=== PATIENT | male | born 1995 | race Caucasian/White ===

== ENCOUNTER 2020-11-23 06:40 | Emergency (ER) | payer BC, MEDICAID ==
[~2020-11-23] VITALS: Ht 177.8 cm; Wt 82.6 kg
[2020-11-23 07:25] LABS: Basophils # (auto) 0 10 ^3/uL (0-0.2); Basophils % (auto) 0.5 % (0.0-2.0); Eosinophils # (auto) 0.2 10 ^3/uL (0-0.8); Eosinophils % (auto) 2.9 % (0.0-7.0); Hematocrit 45.3 % (41.0-53.0); Hemoglobin 16.1 g/dL (13.5-17.5); Lymphocytes # (auto) 1.8 10 ^3/uL (0.4-5.4); Mean Corpuscular Hemoglobin 30.6 pg (28.0-32.0); Mean Corpuscular Hgb Conc. 35.4 g/dL (32.0-36.0); Mean Corpuscular Volume 86.5 fL (80.0-100.0); Monocytes # (auto) 0.5 10 ^3/uL (0-1.3); Monocytes % (auto) 9.7 % (0.0-12.0); Neutrophils % (auto) 53.9 % (37.0-80.0); Nucleated Red Blood Cells % 0.1 %; Platelet Count (auto) 260 10^3/uL (140-450); Red Blood Cells 5.24 10^6/uL (4.5-5.90); Red Cell Distribution Width 12.2 % (11.8-14.3); White Blood Cell 5.5 10^3/uL (4.4-10.8)
[2020-11-23 07:30] VITALS: BP 134/87
[2020-11-23 07:40] LABS: Albumin 3.8 g/dL (3.4-5.0); Calcium 8.3 mg/dL (8.5-10.1); Potassium 4.1 mmol/L (3.5-5.1)
[2020-11-23 07:46] LABS: BUN/Creatinine Ratio 17.5; Bilirubin, Total 0.3 mg/dL (0.2-1.0); Total Protein 7.4 g/dL (6.4-8.2)
[2020-11-23] MEDS ORDERED: ACETAMINOPHEN 325 MG TAB PO ONE (11:15)
== END 2020-11-23 11:18 | disposition home or self-care (01) ==
LOC: ER 06:40 → EDBD 06:40 → ER 11:18
DX: S00.01XA Abrasion of scalp, initial encounter (principal); R55 Syncope and collapse; X58.XXXA Exposure to other specified factors, initial encounter; Y93.89 Activity, other specified; Y92.89 Other specified places as the place of occurrence of the external cause; Y99.8 Other external cause status
CPT/HCPCS: 36415; 70450; 80053; 82962; 85025

== ENCOUNTER 2022-02-17 07:56 | Day surgery (SDC) | payer BC ==
[~2022-02-17] VITALS: Ht 177.8 cm; Wt 83.5 kg
[~2022-02-17 07:56] MED LIST: NORT25CA PO
[2022-02-17] MEDS ORDERED: ceFAZolin 1GM/50ML 100 ML IV ONE (08:14)
[2022-02-17] MEDS ORDERED: BUPIVACAINE W/ EPINEPH 0.25% INJ 50ML MDV ONE (10:42)
[2022-02-17] MEDS ORDERED: ROCURONIUM 10MG/ML 10ML VIAL IV ONE (11:05)
[2022-02-17] MEDS ORDERED: MIDAZOLAM HCL 2MG/2ML 2ml VIAL (1mg/ml) ONE (11:05)
[2022-02-17] MEDS ORDERED: fentaNYL CITRATE 100 MCG/2 ML VL ONE (11:05)
[2022-02-17] MEDS ORDERED: LIDOCAINE 2% (LOCAL ANESTH.) PF 5ml SDV ONE (11:53)
[2022-02-17] MEDS ORDERED: ONDANSETRON HCL 4 MG/2 ML VIAL ONE (11:53)
[2022-02-17] MEDS ORDERED: PROPOFOL 10 MG/ML 20 ML IV ONE (11:54)
[2022-02-17] MEDS ORDERED: HYDROmorphone HCL 2 MG/ML VL/or syr IV PRN (12:00)
[2022-02-17] MEDS ORDERED: ONDANSETRON HCL 4 MG/2 ML VIAL IV PRN (12:00)
[2022-02-17] MEDS: HYDROmorphone HCL 2 MG/ML VL/or syr IV PRN ×4 (12:22→13:03)
[2022-02-17 13:25] VITALS: BP 127/73
== END 2022-02-17 13:38 | disposition home or self-care (01) ==
LOC: SUR 07:56
PROVIDERS: ATTEND Orthopaedic Surgery
DX: S92.351K Displaced fracture of fifth metatarsal bone, right foot, subsequent encounter for fracture with nonunion (principal); Z90.89 Acquired absence of other organs; Z98.890 Other specified postprocedural states; Z79.899 Other long term (current) drug therapy; Z20.822 Contact with and (suspected) exposure to COVID-19; X58.XXXD Exposure to other specified factors, subsequent encounter
CPT/HCPCS: 28485; 73620; J0690; J1170; J2001; J2250; J2405; J2704; J3010; U0003; 76000

== ENCOUNTER 2025-06-02 12:42 | Inpatient (IN) | payer BC, OTHER ==
[~2025-06-02] VITALS: Ht 177.8 cm; Wt 96.3 kg
[2025-06-02] MEDS: SODIUM CHLORIDE 0.9% 1,000 ML IV ONE ×2 (13:03→18:44)
[2025-06-02] MEDS: MORPHINE SULFATE 4 MG/ML SYR/VIAL IV ONE (13:22)
[2025-06-02] MEDS: ONDANSETRON HCL 4 MG/2 ML VIAL IV ONE ×2 (13:22→18:45)
[2025-06-02 13:34] LABS: Hematocrit 47.7 % (41.0-53.0); Hemoglobin 16.9 g/dL (13.5-17.5); Mean Corpuscular Hemoglobin 30.2 pg (28.0-32.0); Mean Corpuscular Volume 85.4 fL (80.0-100.0); Nucleated Red Blood Cells % 0.3 %
[2025-06-02 13:39] LABS: Alkaline Phosphatase 83 U/L (46-116); Anion Gap 10 (5-15); BUN/Creatinine Ratio 8.3 (10.0-20.0); Calcium 9.5 mg/dL (8.7-10.4); Carbon Dioxide 22 mmol/L (20-31); Chloride 106 mmol/L (98-107); Glucose 105 mg/dL (74-106); Potassium 4.3 mmol/L (3.5-5.1); Sodium 138 mmol/L (136-145); Total Protein 7.3 g/dL (5.7-8.2)
[2025-06-02 13:40] LABS: Bilirubin, Total 0.8 mg/dL (0.2-1.0)
[2025-06-02 13:42] LABS: Alanine Aminotransferase 105 U/L (7-40); Albumin 4.9 g/dL (3.2-4.8); Blood Urea Nitrogen 9 mg/dL (9-23)
--- NOTE | 2025-06-02 13:48 | DVH ---
CLINICAL HISTORY: R flank pain TECHNIQUE: CT of the abdomen and pelvis was performed without IV contrast. This exam was performed ac cording to our departmental dose optimization program. Up-to-date CT equipment and radiation dose red uction techniques are utilized as appropriate. CTDI 19.5 DLP 1060.4 COMPARISON: None FINDINGS: Abdomen/Pelvis: The spleen, pancreas, gallbladder, adrenal glands, left kidney, and prostate gland are grossly unrema rkable. There is diffuse hepatic steatosis. There is a 2 mm right UVJ calculus resulting in mild upstream hydronephrosis and perinephric left per iureteral flammatory change. There is a 1 mm nonobstructing right renal calculus. The abdominal aorta is normal in course and caliber. There are no significant atherosclerotic calcifi cations. There is no free intraperitoneal air or fluid. There is no enlarged abdominal pelvic lymph node. There is no bowel wall thickening or dilatation. The appendix is normal. Other: The imaged lower thorax demonstrates miniscule bilateral pleural fusion. No acute osseous abnormality is evident. Impression: 2 mm right UVJ calculus result in mild upstream hydroureteronephrosis. Punctate nonobstructing right renal calculus. Diffuse hepatic steatosis. Miniscule bilateral pleural effusions.
--- NOTE | 2025-06-02 14:21 | ED.PDOC ---
History of Present Illness HPI Comments 29 y/o M with no significant past medical history brought in by private car complaining of severe right flank pain radiating to the right lower quadrant, onset 2 days ago. Patient reports he had mild right flank pain yesterday, was diagnosed with a UTI at urgent Care, and was prescribed doxycycline and Pyri dium. He states today at work he developed severe right flank pain and noticed blood clots in his urine. He had 1 episode of nausea and vomiting, and also reports dysuria and urinary frequency. He denies fever or diarrhea. Chief Complaint: Flank Pain Time Seen by MD: 12:45 Primary Care Provider: Luis Eduardo Reviewed Notes: Nurses Notes, Medications, Allergies Allergies: Coded Allergies: NO KNOWN ALLERGIES (Unverified , 09/03/11) Home Meds Reported Medications Nortriptyline Hcl (PAMELOR CAPSULE) 25 Mg Cp, 10 MG PO QPM, CAP 02/11/22 Information Source: Patient Mode of Arrival: Ambulatory Past Medical History PAST MEDICAL HISTORY: Denies Surgical History: Tonsillectomy Surgical History (Other): Nasal septoplasty Right hand and foot ORIF Family History Family History: Reviewed,noncontributory to illness Social History Smoker: Non-Smoker Alcohol: Denies ETOH Use Drugs: Denies Drug Use Lives In: Home All Other Systems: Reviewed and Negative (Comprehensive systems review obtained and negative except for what is stated in the HPI.) Physical Exam General Appearance: No Apparent Distress HEENT: Other (Pupils and face symmetric. Moist mucous membranes.) Neck: Full Range of Motion, Normal Inspection Respiratory: Lungs Clear, No Accessory Muscle Use, No Respiratory Distress, Normal Breath Sounds Cardiovascular: No Edema, No JVD, Regular Rate/Rhythm Breast Exam: Deferred Gastrointestinal: Soft, Tenderness (Right-sided flank and right mid abdominal tenderness to palpation. No rebound or guarding.) Genitalia: Deferred Pelvic: Deferred Rectal: Deferred Extremities: Normal inspection, Normal range of motion, Non-tender, No pedal edema Neurologic: Alert (Oriented x4), Normal Affect, Normal Mood, Other (Ambulatory) Cerebellar Function: NOT DONE Reflexes: NOT DONE Skin: Dry, Normal Color, Warm Lymphatic: NOT DONE Was a procedure done? Was a procedure done?: No Differential Dx Considerations may include: nephrolithiasis, pyelonephritis, cystitis, UTI, appendicitis, biliary tract disease, colitis, diverticular disease, among others X-Ray, Labs, Meds, VS Vital Signs Date Time Temp Pulse Resp B/P (MAP) Pulse Ox O2 Delivery O2 Flow Rate FiO2 06/02/25 13:51 98.6 71 16 143/84 (103) 95 98.6 06/02/25 13:51 71 16 95 Room Air 06/02/25 13:50 71 16 143/84 06/02/25 13:22 89 18 163/105 06/02/25 12:43 98.0 89 18 163/105 98 98.0 Lab Test 06/02/25 15:08 06/02/25 13:02 Range/Units Urine Color Dark-orange Yellow Urine Clarity Clear Clear Urine pH 5.0 5.0-9.0 Urine Specific [place] 1.013 1.001-1.035 Urine Protein Negative Negative Urine Ketones Negative Negative Urine Blood 1+ H Negative /uL Urine Nitrite 1+ H Negative Urine Bilirubin Negative Negative Urine Urobilinogen Normal Negative mg/dL Urine Leukocyte Esterase Negative Negative /uL Urine RBC 6 0 - 3 /hpf Urine Microscopic WBC 1 0-3 /HPF Urine Squamous Epithelial Cells Few <5 /hpf Urine Bacteria None seen None Seen /hpf Urine Mucus Few None Seen Urine Glucose Normal Normal mg/dL White Blood Count 13.3 H 4.4-10.8 10^3/uL Red Blood Count 5.59 4.5-5.90 10^6/uL Hemoglobin 16.9 13.5-17.5 g/dL Hematocrit 47.7 41.0-53.0 % Mean Corpuscular Volume 85.4 80.0-100.0 fL Mean Corpuscular Hemoglobin 30.2 28.0-32.0 pg Mean Corpuscular Hemoglobin Concent 35.4 32.0-36.0 g/dL Red Cell Distribution Width 12.8 11.8-14.3 % Platelet Count 336 140-450 10^3/uL Mean Platelet Volume 7.1 6.9-10.8 fL Neutrophils (%) (Auto) 80.0 37.0-80.0 % Lymphocytes (%) (Auto) 13.6 10.0-50.0 % Monocytes (%) (Auto) 5.8 0.0-12.0 % Eosinophils (%) (Auto) 0.5 0.0-7.0 % Basophils (%) (Auto) 0.1 0.0-2.0 % Neutrophils # (Auto) 10.6 H 1.6-8.6 10 ^3/uL Lymphocytes # (Auto) 1.8 0.4-5.4 10 ^3/uL Monocytes # (Auto) 0.8 0-1.3 10 ^3/uL Eosinophils # (Auto) 0.1 0-0.8 10 ^3/uL Basophils # (Auto) 0 0-0.2 10 ^3/uL Nucleated Red Blood Cells 0.3 % Sodium Level 138 136-145 mmol/L Potassium Level 4.3 3.5-5.1 mmol/L Chloride Level 106 98-107 mmol/L Carbon Dioxide Level 22 20-31 mmol/L Anion Gap 10 5-15 Blood Urea Nitrogen 9 9-23 mg/dL Creatinine 1.08 0.700-1.30 mg/dL Glomerular Filtration Rate Calc 96 >90 mL/min BUN/Creatinine Ratio 8.3 L 10.0-20.0 Serum Glucose 105 74-106 mg/dL Calcium Level 9.5 8.7-10.4 mg/dL Total Bilirubin 0.8 0.2-1.0 mg/dL Aspartate Amino Transferase (AST) 44 H 13-40 U/L Alanine Aminotransferase (ALT) 105 H 7-40 U/L Alkaline Phosphatase 83 46-116 U/L Total Protein 7.3 5.7-8.2 g/dL Albumin 4.9 H 3.2-4.8 g/dL Current Medications Medications (Trade) Dose Ordered Sig/Rg Route Start Time Stop Time Status Last Admin Morphine Sulfate 4 mg ONCE ONCE IV 06/02/25 13:00 06/02/25 13:01 DC 06/02/25 13:22 Ondansetron HCl (Zofran) 4 mg ONCE ONCE IV 06/02/25 13:00 06/02/25 13:01 DC 06/02/25 13:22 Sodium Chloride 1,000 ml @ 1,000 mls/hr Q1H ONCE IV 06/02/25 13:00 06/02/25 13:59 DC 06/02/25 13:[address] [address] Ph: [phone] DIAGNOSTIC IMAGING Diagnostic Imaging Report : [id number] Signed PATIENT: CHAUNCEY HILL ACCT: [id number] UNIT: [id number] : 1995 LOC: ER ROOM / BED: / AGE / SEX: 29 / M ADM STATUS: REG ER SERVICE 1249 ORDERING PHYSICIAN: ELIZABETH BROOKS MD PROCEDURE(s): ABPL - CT AB PEL WO CON-NO ORAL OR IV REASON: R flank pain ORDER NUMBER(s): [id number], ACCESSION NUMBER(s): [id number] CLINICAL HISTORY: R flank pain TECHNIQUE: CT of the abdomen and pelvis was performed without IV contrast. This exam was performed according to our departmental dose optimization program. Up -to-date CT equipment and radiation dose reduction techniques are utilized as appropriate. CTDI 19.5 DLP 1060.4 COMPARISON: None FINDINGS: Abdomen/Pelvis: The spleen, pancreas, gallbladder, adrenal glands, left kidney, and prostate gland are grossly unremarkable. There is diffuse hepatic steatosis. There is a 2 mm right UVJ calculus resulting in mild upstream hydronephrosis and perinephric left periureteral flammatory change. There is a 1 mm nonobstructing right renal calculus. The abdominal aorta is normal in course and caliber. There are no significant atherosclerotic calcifications. There is no free intraperitoneal air or fluid. There is no enlarged abdominal pelvic lymph node. There is no bowel wall thickening or dilatation. The appendix is normal. Other: The imaged lower thorax demonstrates miniscule bilateral pleural fusion. No acute osseous abnormality is evident. Impression: 2 mm right UVJ calculus result in mild upstream hydroureteronephrosis. Punctate nonobstructing right renal calculus. Diffuse hepatic steatosis. Miniscule bilateral pleural effusions. ATED BY: DUY MOTA MD DICTATED DATE/TIME: 06/02/25 1345 SIGNED BY: DUY MOTA MD SIGNED DATE/TIME: 06/02/25 134 CC: X-Ray, Labs, Meds, VS Comment 29-year-old male with no significant past medical history complaining of right flank pain, hematuria and dysuria for the past 2 days Vitals remarkable for BP 163/105 Exam remarkable for right flank and right mid abdominal tenderness to palpation Rhythm strip independently interpreted by me: Sinus rhythm, rate 89, no ectopy. CT abdomen and pelvis Impression: 2 mm right UVJ calculus result in mild upstream hydroureteronephrosis. Punctate nonobstructing right renal calculus. Diffuse hepatic steatosis. Miniscule bilateral pleural effusions. CBC remarkable for WBC 13.3, CMP remarkable for mild transaminitis, UA abnormal consistent with possible partially treated UTI Patient treated with the following in the ED: 1 L 0.9 normal saline IV bolus, morphine 4 mg IV, Zofran 4 mg IV x2, fentanyl 25 mcg IV, Rocephin 1 g IV On re-evaluation after morphine and fentanyl, patient was still in pain. Vitals were stable. Plan is to admit the patient for pain control, IV antibiotics and Urology evaluation. Time of 1ST Reevaluation: 13:15 Reevaluation 1ST: Unchanged Patient Education/Counseling: Diagnosis, Treatment, Need For Follow Up Family Education/Counseling: No Family Present SEPSIS Sepsis Screen Date sepsis recognized/suspect: Jun 02, 2025 Time Sepsis recognized/suspect: 1245 Recent Procedure: No On Antibiotic Therapy: No Respiratory Rate >20: No Heart Rate >90: No Temp<36 C (96.8 F) or >38.3 C: No SBP <90 or MAP <65 mmHG: No New Acute Mental Status Change: No Is the patient on CPAP, BIPAP,: No Physician Orders Ct Ab Pel Wo Con-No Oral Or Iv (06/02/25 12:49) Saline Lock (06/02/25 12:50) Ceftriaxone 1gm/50ml D5w (Rocephin) (06/02/25 16:30) Vital Signs Date Time Temp Pulse Resp B/P (MAP) Pulse Ox O2 Delivery O2 Flow Rate FiO2 06/02/25 13:51 98.6 71 16 143/84 (103) 95 98.6 06/02/25 13:51 71 16 95 Room Air 06/02/25 13:50 71 16 143/84 06/02/25 13:22 89 18 163/105 06/02/25 12:43 98.0 89 18 163/105 98 98.0 Laboratory Tests Test 06/02/25 13:02 White Blood Count 13.3 10^3/uL (4.4-10.8) H Medications Medications Dose Ordered Sig/Rg Route Start Time Stop Time Status Last Admin Dose Admin Morphine Sulfate 4 mg ONCE ONCE IV 06/02/25 13:00 06/02/25 13:01 DC 06/02/25 13:22 Ondansetron HCl 4 mg ONCE ONCE IV 06/02/25 13:00 06/02/25 13:01 DC 06/02/25 13:22 Sodium Chloride 1,000 ml @ 1,000 mls/hr Q1H ONCE IV 06/02/25 13:00 06/02/25 13:59 DC 06/02/25 13:03 Departure 1 Departure Time of Disposition: 16:30 Impression: Primary Impression: Ureterolithiasis Additional Impressions: Intractable pain UTI (urinary tract infection) Qualified Codes: N39.0 - Urinary tract infection, site not specified; R31.9 - Hematuria, unspecified Disposition: ADMITTED INPATIENT Admit to: Med Surg Condition: Fair Critical Care Note Critical Care Time?: No Stability Stability form required: No Heart Score Heart Score: Heart Score Response (Comments) Value History N/A 0 EKG N/A 0 Age N/A 0 Risk Factors N/A 0 Troponin N/A 0 Total 0 I personally scribed for ELIZABETH BROOKS MD ([email or web address]) on 06/02/25 at 14:20. Electronically submitted by Caleb Hemphill ([email or web address]). I personally scribed for ELIZABETH BROOKS MD ([email or web address]) on 06/02/25 at 16:31. Electronically submitted by Caleb Hemhpill ([email or web address]). ELIZABETH BROOKS MD Jun 02, 2025 14:20
[2025-06-02 15:21] LABS: Urine Protein, UAD Negative (Negative)
[2025-06-02] MEDS: cefTRIAXone 1GM/50ML D5W 50 ML IV ONE (17:18)
--- NOTE | 2025-06-02 18:13 | DVHHP2 ---
Admitting Diagnosis: Flank pain History of Present Illness 29 y/o M with no significant past medical history brought in by private car complaining of severe right flank pain radiating to the right lower quadrant, onset 2 days ago. Patient reports he had mild right flank pain yesterday, was diagnosed with a UTI at urgent Care, and was prescribed doxycycline and Pyridium. He states today at work he developed severe right flank pain and noticed blood clots in his urine. He had 1 episode of nausea and vomiting, and also reports dysuria and urinary frequency. He denies fever or diarrhea. PAST MEDICAL HISTORY: Denies Surgical History: Tonsillectomy Surgical History (Other): Nasal septoplasty Right hand and foot ORIF Family History Family History: Reviewed,noncontributory to illness Social History Smoker: Non-Smoker Alcohol: Denies ETOH Use Drugs: Denies Drug Use Lives In: Home Allergies: Coded Allergies: NO KNOWN ALLERGIES (Unverified , 09/03/11) Home Meds Reported Medications Nortriptyline Hcl (PAMELOR CAPSULE) 25 Mg Cp, 10 MG PO QPM, CAP 02/11/22 Vital Signs Vital Signs Date Time Temp Pulse Resp B/P (MAP) Pulse Ox O2 Delivery O2 Flow Rate FiO2 06/02/25 18:44 123/70 06/02/25 18:26 97 Room Air* 0 21 06/02/25 18:21 59 16 06/02/25 18:00 98.5 98.5 Physical Exam Generally-29 years old male, well nourished well developed. Mild distress HEENT-atraumatic normocephalic Heart-regular rate and rhythm Lungs clear to auscultate bilaterally Abdomen soft nontender nondistended Musculoskeletal-no edema cyanosis Neuro-AO x3, no focal deficit SEPSIS Sepsis Screen Date sepsis recognized/suspect: Jun 02, 2025 Time Sepsis recognized/suspect: 1245 Recent Procedure: No On Antibiotic Therapy: No Respiratory Rate >20: No Heart Rate >90: No Temp<36 C (96.8 F) or >38.3 C: No SBP <90 or MAP <65 mmHG: No New Acute Mental Status Change: No Is the patient on CPAP, BIPAP,: No Physician Orders Ct Ab Pel Wo Con-No Oral Or Iv (06/02/25 12:49) Saline Lock (06/02/25 12:50) * Urology Consult (06/02/25 18:13) Insert Wilder Catheter QSHIFT (06/02/25 18:13) Npo (Nothing By Mouth) Diet (06/03/25 Breakfast) Sodium Chloride 0.9% (06/02/25 18:15) Sequential Compression Device (06/02/25 18:15) Vital Signs Date Time Temp Pulse Resp B/P (MAP) Pulse Ox O2 Delivery O2 Flow Rate FiO2 06/02/25 18:44 123/70 06/02/25 18:26 97 Room Air* 0 21 06/02/25 18:21 59 16 97 Room Air* 0 21 06/02/25 18:00 98.5 59 16 116/73 (87) 96 98.5 06/02/25 16:53 98.2 64 16 146/72 (96) 96 98.2 06/02/25 13:51 98.6 71 16 143/84 (103) 95 98.6 06/02/25 13:51 71 16 95 Room Air 06/02/25 13:50 71 16 143/84 06/02/25 13:22 89 18 163/105 06/02/25 12:43 98.0 89 18 163/105 98 98.0 Laboratory Tests Test 06/02/25 13:02 White Blood Count 13.3 10^3/uL (4.4-10.8) H Medications Medications Dose Ordered Sig/Rg Route Start Time Stop Time Status Last Admin Dose Admin Ceftriaxone Sodium 50 ml @ 100 mls/hr ONCE ONCE IV 06/02/25 16:30 06/02/25 16:59 DC 06/02/25 17:18 Fentanyl Citrate 25 mcg ONCE ONCE IV 06/02/25 18:45 06/02/25 18:46 DC 06/02/25 18:44 Morphine Sulfate 4 mg ONCE ONCE IV 06/02/25 13:00 06/02/25 13:01 DC 06/02/25 13:22 Ondansetron HCl 4 mg ONCE ONCE IV 06/02/25 13:00 06/02/25 13:01 DC 06/02/25 13:22 Ondansetron HCl 4 mg ONCE ONCE IV 06/02/25 18:45 06/02/25 18:46 DC 06/02/25 18:45 Sodium Chloride 1,000 ml @ 150 mls/hr Q6H40M ONCE IV 06/02/25 18:15 06/03/25 00:54 06/02/25 18:44 Sodium Chloride 1,000 ml @ 1,000 mls/hr Q1H ONCE IV 06/02/25 13:00 06/02/25 13:59 DC 06/02/25 13:03 Tamsulosin HCl 0.4 mg ONCE ONCE PO 06/02/25 18:15 06/02/25 18:20 DC 06/02/25 18:44 Results Labs Test 06/02/25 15:08 06/02/25 13:02 Range/Units Urine Color Dark-orange Yellow Urine Clarity Clear Clear Urine pH 5.0 5.0-9.0 Urine Specific [place] 1.013 1.001-1.035 Urine Protein Negative Negative Urine Ketones Negative Negative Urine Blood 1+ H Negative /uL Urine Nitrite 1+ H Negative Urine Bilirubin Negative Negative Urine Urobilinogen Normal Negative mg/dL Urine Leukocyte Esterase Negative Negative /uL Urine RBC 6 0 - 3 /hpf Urine Microscopic WBC 1 0-3 /HPF Urine Squamous Epithelial Cells Few <5 /hpf Urine Bacteria None seen None Seen /hpf Urine Mucus Few None Seen Urine Glucose Normal Normal mg/dL White Blood Count 13.3 H 4.4-10.8 10^3/uL Red Blood Count 5.59 4.5-5.90 10^6/uL Hemoglobin 16.9 13.5-17.5 g/dL Hematocrit 47.7 41.0-53.0 % Mean Corpuscular Volume 85.4 80.0-100.0 fL Mean Corpuscular Hemoglobin 30.2 28.0-32.0 pg Mean Corpuscular Hemoglobin Concent 35.4 32.0-36.0 g/dL Red Cell Distribution Width 12.8 11.8-14.3 % Platelet Count 336 140-450 10^3/uL Mean Platelet Volume 7.1 6.9-10.8 fL Neutrophils (%) (Auto) 80.0 37.0-80.0 % Lymphocytes (%) (Auto) 13.6 10.0-50.0 % Monocytes (%) (Auto) 5.8 0.0-12.0 % Eosinophils (%) (Auto) 0.5 0.0-7.0 % Basophils (%) (Auto) 0.1 0.0-2.0 % Neutrophils # (Auto) 10.6 H 1.6-8.6 10 ^3/uL Lymphocytes # (Auto) 1.8 0.4-5.4 10 ^3/uL Monocytes # (Auto) 0.8 0-1.3 10 ^3/uL Eosinophils # (Auto) 0.1 0-0.8 10 ^3/uL Basophils # (Auto) 0 0-0.2 10 ^3/uL Nucleated Red Blood Cells 0.3 % Sodium Level 138 136-145 mmol/L Potassium Level 4.3 3.5-5.1 mmol/L Chloride Level 106 98-107 mmol/L Carbon Dioxide Level 22 20-31 mmol/L Anion Gap 10 5-15 Blood Urea Nitrogen 9 9-23 mg/dL Creatinine 1.08 0.700-1.30 mg/dL Glomerular Filtration Rate Calc 96 >90 mL/min BUN/Creatinine Ratio 8.3 L 10.0-20.0 Serum Glucose 105 74-106 mg/dL Calcium Level 9.5 8.7-10.4 mg/dL Total Bilirubin 0.8 0.2-1.0 mg/dL Aspartate Amino Transferase (AST) 44 H 13-40 U/L Alanine Aminotransferase (ALT) 105 H 7-40 U/L Alkaline Phosphatase 83 46-116 U/L Total Protein 7.3 5.7-8.2 g/dL Albumin 4.9 H 3.2-4.8 g/dL Primary Diagnosis Right flank pain due to right renal calculus with mild hydronephrosis Plan suspect due to dehydration IV fluids Pain control Clear liquid diet NPO after midnight Urology consult Tamsulosin Full code DVT prophylaxis No GI prophylaxis needed Plan discussed with: Patient Problems List: (1) Hydronephrosis (2) Ureterolithiasis Status: Acute Date of Service: Jun 02, 2025 Billing Provider: CECILIA MAKI MD Common Visit Codes: [id number] INP/OBS CARE (MOD) CECILIA MAKI MD Jun 02, 2025 18:13
[2025-06-02 18:21] VITALS: PULSE 59; RESP 16; O2SAT 97
[2025-06-02] MEDS: TAMSULOSIN HYDROCHLORIDE 0.4 MG CAP PO ONE (18:44)
[2025-06-02] MEDS: fentaNYL CITRATE 100 MCG/2 ML VL IV ONE (18:44)
[2025-06-02] MEDS ORDERED: ONDANSETRON HCL 4 MG/2 ML VIAL IV PRN (19:15)
[2025-06-02] MEDS ORDERED: ACETAMINOPHEN 325 MG TAB PO PRN (19:15)
[2025-06-02] MEDS ORDERED: KETOROLAC TROMETH 30 MG/ML 1ML VIAL IV PRN (19:15)
[2025-06-02 22:00] VITALS: BP 130/74; PULSE 78; RESP 16; TEMP 97.7; O2SAT 98
[2025-06-03] VITALS (7 sets, daily range): BP systolic 107–120; BP diastolic 54–71; PULSE 64–70; RESP 16–20; TEMP 97.6–98.6; O2SAT 94–98
[2025-06-03] MEDS: MORPHINE SULFATE INJ 2 MG/ml SYRG IV PRN (00:02)
[2025-06-03 08:13] LABS: Hematocrit 41.3 % (41.0-53.0); Hemoglobin 14.9 g/dL (13.5-17.5); Mean Corpuscular Hemoglobin 30.9 pg (28.0-32.0); Mean Corpuscular Volume 85.9 fL (80.0-100.0); Nucleated Red Blood Cells % 0.1 %
[2025-06-03 08:31] LABS: Albumin 3.9 g/dL (3.2-4.8); Alkaline Phosphatase 67 U/L (46-116); Anion Gap 11 (5-15); BUN/Creatinine Ratio 11.6 (10.0-20.0); Bilirubin, Total 0.5 mg/dL (0.2-1.0); Blood Urea Nitrogen 11 mg/dL (9-23); Carbon Dioxide 24 mmol/L (20-31); Chloride 107 mmol/L (98-107); Glucose 97 mg/dL (74-106); Potassium 3.9 mmol/L (3.5-5.1); Sodium 142 mmol/L (136-145); Total Protein 5.8 g/dL (5.7-8.2)
[2025-06-03 08:33] LABS: Alanine Aminotransferase 72 U/L (7-40); Calcium 8.5 mg/dL (8.7-10.4)
[2025-06-03] MEDS: ENOXAPARIN SOD 40 MG/0.4 ML SYRINGE SC SCH (08:59)
--- NOTE | 2025-06-03 17:01 | DVHPN2 ---
Subjective This is a follow up on 29-year-old male with no significant past medical history presented to the hospital with a right flank pain on and off for last few days found to have right obstructive uropathy with a 2 mm UVJ stone with a mild hydronephrosis. Patient is complaining of minimal right flank pain and some urinary hesitancy/dysuria. Changes from previous H/P or p: No Changes Objective Vitals Vital Signs Date Time Temp Pulse Resp B/P (MAP) Pulse Ox O2 Delivery O2 Flow Rate FiO2 06/03/25 16:54 97.6 68 20 107/67 (80) 96 97.6 06/03/25 08:00 Room Air* 0 21 Intake/Output Intake and Output 06/03/25 07:00 Intake Total 1365 ml Output Total 200 ml Balance 1165 ml Intake Oral 240 ml IV Total 1125 ml Output Urine Total 200 ml Exam HEENT pupils are reactive Neck is supple CV is S1-S2 regular rate and rhythm Respiratory are clear GI positive bowel sound Extremity no edema [employer] no motor deficit. Medications Current Medications Medications Dose Ordered Sig/Rg Route Start Time Stop Time Status Last Admin Dose Admin Ondansetron HCl 4 mg Q6HPRN PRN IV 06/02/25 19:15 Acetaminophen 325 mg Q4HP PRN PO 06/02/25 19:15 Ketorolac Tromethamine 15 mg Q6HPRN PRN IV 06/02/25 19:15 06/07/25 19:14 Morphine Sulfate 2 mg Q4HPRN PRN IV 06/02/25 19:15 06/03/25 10:58 2 MG Tamsulosin HCl 0.4 mg QPM PO 06/03/25 18:00 Enoxaparin Sodium 40 mg DAILY SC 06/03/25 10:00 06/03/25 08:59 40 MG Laboratory Results Laboratory Tests 06/03/25 05:57 Chemistry Test 06/03/25 05:57 Albumin 3.9 g/dL (3.2-4.8) Calcium Level 8.5 mg/dL (8.7-10.4) L Total Protein 5.8 g/dL (5.7-8.2) LFT Test 06/03/25 05:57 Alanine Aminotransferase (ALT) 72 U/L (7-40) H Alkaline Phosphatase 67 U/L (46-116) Aspartate Amino Transferase (AST) 26 U/L (13-40) Total Bilirubin 0.5 mg/dL (0.2-1.0) Urinalysis Test 06/02/25 15:08 Urine Color Dark-orange (Yellow) Urine Clarity Clear (Clear) Urine pH 5.0 (5.0-9.0) Urine Specific [place] 1.013 (1.001-1.035) Urine Protein Negative (Negative) Urine Ketones Negative (Negative) Urine Blood 1+ /uL (Negative) H Urine Nitrite 1+ (Negative) H Urine Bilirubin Negative (Negative) Urine Urobilinogen Normal mg/dL (Negative) Urine Leukocyte Esterase Negative /uL (Negative) Urine RBC 6 /hpf (0 - 3) Urine Microscopic WBC 1 /HPF (0-3) Urine Squamous Epithelial Cells Few /hpf (<5) Urine Bacteria None seen /hpf (None Seen) Urine Mucus Few (None Seen) Urine Glucose Normal mg/dL (Normal) Assessment/Plan Assessment/Plan 29-year-old male with a no significant past medical history presented to the hospital with right flank pain and some dysuria found to have 1. Right obstructive uropathy 2. Right ureteric/UVJ 2 mm stone with a mild hydronephrosis 3. Punctate right renal calculus nonobstructing 4. UTI -IV fluids, Flomax, IV antibiotics, Urology consultation. Plan discussed with: Patient Date of Service: Jun 03, 2025 Billing Provider: NATHANAEL MENDIETA MD Common Visit Codes: [id number] INP/OBS CARE(MOD) NATHANAEL MENDIETA MD Jun 03, 2025 17:01
[2025-06-03] MEDS: cefTRIAXone 1GM/50ML D5W 50 ML IV ONE (17:44)
[2025-06-03] MEDS: TAMSULOSIN HYDROCHLORIDE 0.4 MG CAP PO SCH (17:44)
[2025-06-04 01:00] VITALS: BP 117/78; PULSE 60; RESP 16; TEMP 97.9; O2SAT 95
[2025-06-04 05:00] VITALS: BP 116/72; PULSE 65; RESP 17; TEMP 98.1; O2SAT 96
[2025-06-04 07:29] LABS: Hematocrit 41.9 % (41.0-53.0); Hemoglobin 14.9 g/dL (13.5-17.5); Mean Corpuscular Hemoglobin 30.5 pg (28.0-32.0); Mean Corpuscular Volume 86.0 fL (80.0-100.0); Nucleated Red Blood Cells % 0.1 %
[2025-06-04 07:36] LABS: Albumin 3.9 g/dL (3.2-4.8); Alkaline Phosphatase 62 U/L (46-116); Anion Gap 9 (5-15); BUN/Creatinine Ratio 6.8 (10.0-20.0); Bilirubin, Total 0.6 mg/dL (0.2-1.0); Calcium 8.8 mg/dL (8.7-10.4); Carbon Dioxide 27 mmol/L (20-31); Chloride 106 mmol/L (98-107); Glucose 91 mg/dL (74-106); Potassium 4.1 mmol/L (3.5-5.1); Sodium 142 mmol/L (136-145); Total Protein 5.8 g/dL (5.7-8.2)
[2025-06-04 07:38] LABS: Alanine Aminotransferase 72 U/L (7-40); Blood Urea Nitrogen 5 mg/dL (9-23)
[2025-06-04 08:00] VITALS: PULSE 63; RESP 18; O2SAT 95
[2025-06-04 09:00] VITALS: BP 109/68; PULSE 63; RESP 18; TEMP 97.8; O2SAT 95
[2025-06-04] MEDS: cefTRIAXone 1GM/50ML D5W 50 ML IV SCH (10:19)
--- NOTE | 2025-06-04 12:44 | DVHINCON2 ---
Date of service: Jun 04, [address] Paez Reason for Consultation ureteral stone History of Present Illness History Source: Patient, RN Notes, MD Notes Exam Limitations: No limitations HPI 29 y/o M with no significant past medical history brought in by private car complaining of severe right flank pain radiating to the right lower quadrant, onset 2 days ago. Patient reports he had mild right flank pain yesterday, was diagnosed with a UTI at urgent Care, and was prescribed doxycycline and Pyridium. He states today at work he developed severe right flank pain and noticed blood clots in his urine. He had 1 episode of nausea and vomiting, and also reports dysuria and urinary frequency. He denies fever or diarrhea. Home Meds Reported Medications Nortriptyline Hcl (PAMELOR CAPSULE) 25 Mg Cp, 10 MG PO QPM, CAP 02/11/22 Review of Systems Genitourinary: Frequency, Hematuria, Pain H&P Exam Vital Signs Vital Signs Date Time Temp Pulse Resp B/P (MAP) Pulse Ox O2 Delivery O2 Flow Rate FiO2 06/04/25 10:30 68 22 109/68 06/04/25 09:00 97.8 95 97.8 06/03/25 20:00 Room Air* 0 21 General Appeara: Well developed, Well nourished, Normal Appearance Neuro/Mental St: Alert, Oriented Appearance: Appropriate appearance, Appropriate insight Eye contact/ Speech: Cooperative, Good eye contact, Normal speech Skin Exam: Normal inspection, Normal color, Warm/dry Labs/Xrays [place] [address] Ph: [phone] DIAGNOSTIC IMAGING Diagnostic Imaging Report : [id number] Signed PATIENT: CHAUNCEY HILLACCT: [id number] UNIT: [id number] : 1995 LOC: ER ROOM / BED: / AGE / SEX: 29 / M ADM STATUS: REG ER SERVICE 1249 ORDERING PHYSICIAN: ELIZABETH BROOKS MD PROCEDURE(s): ABPL - CT AB PEL WO CON-NO ORAL OR IV REASON: R flank pain ORDER NUMBER(s): [id number], ACCESSION NUMBER(s): [id number] CLINICAL HISTORY: R flank pain TECHNIQUE: CT of the abdomen and pelvis was performed without IV contrast. This exam was performed according to our departmental dose optimization program. Up-to-date CT equipment and radiation dose reduction techniques are utilized as appropriate. CTDI 19.5 DLP 1060.4 COMPARISON: None FINDINGS: Abdomen/Pelvis: The spleen, pancreas, gallbladder, adrenal glands, left kidney, and prostate gland are grossly unremarkable. There is diffuse hepatic steatosis. There is a 2 mm right UVJ calculus resulting in mild upstream hydronephrosis and perinephric left periureteral flammatory change. There is a 1 mm nonobstructing right renal calculus. The abdominal aorta is normal in course and caliber. There are no significant atherosclerotic calcifications. There is no free intraperitoneal air or fluid. There is no enlarged abdominal pelvic lymph node. There is no bowel wall thickening or dilatation. The appendix is normal. Other: The imaged lower thorax demonstrates miniscule bilateral pleural fusion. No acute osseous abnormality is evident. Impression: 2 mm right UVJ calculus result in mild upstream hydroureteronephrosis. Punctate nonobstructing right renal calculus. Diffuse hepatic steatosis. Miniscule bilateral pleural effusions. ATED BY: DUY MOTA MD DICTATED DATE/TIME: 06/02/25 1345 SIGNED BY: DUY MOTA MD SIGNED DATE/TIME: 06/02/25 1345 CC: Labs Test 06/04/25 06:26 06/02/25 15:08 Range/Units White Blood Count 4.9 4.4-10.8 10^3/uL Red Blood Count 4.86 4.5-5.90 10^6/uL Hemoglobin 14.9 13.5-17.5 g/dL Hematocrit 41.9 41.0-53.0 % Mean Corpuscular Volume 86.0 80.0-100.0 fL Mean Corpuscular Hemoglobin 30.5 28.0-32.0 pg Mean Corpuscular Hemoglobin Concent 35.5 32.0-36.0 g/dL Red Cell Distribution Width 12.8 11.8-14.3 % Platelet Count 260 140-450 10^3/uL Mean Platelet Volume 7.3 6.9-10.8 fL Neutrophils (%) (Auto) 44.1 37.0-80.0 % Lymphocytes (%) (Auto) 43.9 10.0-50.0 % Monocytes (%) (Auto) 7.8 0.0-12.0 % Eosinophils (%) (Auto) 3.6 0.0-7.0 % Basophils (%) (Auto) 0.6 0.0-2.0 % Neutrophils # (Auto) 2.1 1.6-8.6 10 ^3/uL Lymphocytes # (Auto) 2.1 0.4-5.4 10 ^3/uL Monocytes # (Auto) 0.4 0-1.3 10 ^3/uL Eosinophils # (Auto) 0.2 0-0.8 10 ^3/uL Basophils # (Auto) 0 0-0.2 10 ^3/uL Nucleated Red Blood Cells 0.1 % Sodium Level 142 136-145 mmol/L Potassium Level 4.1 3.5-5.1 mmol/L Chloride Level 106 98-107 mmol/L Carbon Dioxide Level 27 20-31 mmol/L Anion Gap 9 5-15 Blood Urea Nitrogen 5 L 9-23 mg/dL Creatinine 0.74 0.700-1.30 mg/dL Glomerular Filtration Rate Calc 127 >90 mL/min BUN/Creatinine Ratio 6.8 L 10.0-20.0 Serum Glucose 91 74-106 mg/dL Calcium Level 8.8 8.7-10.4 mg/dL Total Bilirubin 0.6 0.2-1.0 mg/dL Aspartate Amino Transferase (AST) 27 13-40 U/L Alanine Aminotransferase (ALT) 72 H 7-40 U/L Alkaline Phosphatase 62 46-116 U/L Total Protein 5.8 5.7-8.2 g/dL Albumin 3.9 3.2-4.8 g/dL Urine Color Dark-orange Yellow Urine Clarity Clear Clear Urine pH 5.0 5.0-9.0 Urine Specific [place] 1.013 1.001-1.035 Urine Protein Negative Negative Urine Ketones Negative Negative Urine Blood 1+ H Negative /uL Urine Nitrite 1+ H Negative Urine Bilirubin Negative Negative Urine Urobilinogen Normal Negative mg/dL Urine Leukocyte Esterase Negative Negative /uL Urine RBC 6 0 - 3 /hpf Urine Microscopic WBC 1 0-3 /HPF Urine Squamous Epithelial Cells Few <5 /hpf Urine Bacteria None seen None Seen /hpf Urine Mucus Few None Seen Urine Glucose Normal Normal mg/dL Assessment/Plan Problem List: (1) Ureterolithiasis Plan expulsive measures supportive care outpt urology follow up Plan discussed with: Patient, Other CATE HUBBARD NP Jun 04, 2025 12:44
[2025-06-04 13:00] VITALS: BP 106/63; PULSE 70; RESP 18; TEMP 97.9; O2SAT 94
[2025-06-04] MEDS ORDERED: TAMS-35 PO (14:49)
[2025-06-04] MEDS ORDERED: NALO4SPR2 (14:49)
[2025-06-04] MEDS ORDERED: CEPH500C PO (14:49)
[2025-06-04] MEDS ORDERED: HYDR-4902 PO (14:49)
--- NOTE | 2025-06-04 14:51 | DVHDS2 ---
Discharge Summary Date of Admission Jun 02, 2025 at 19:11 Date of Discharge: Jun 04, 2025 Labs/Diagnostic Data: Laboratory Results Test 06/04/25 06:26 06/02/25 15:08 White Blood Count 4.9 10^3/uL (4.4-10.8) Red Blood Count 4.86 10^6/uL (4.5-5.90) Hemoglobin 14.9 g/dL (13.5-17.5) Hematocrit 41.9 % (41.0-53.0) Mean Corpuscular Volume 86.0 fL (80.0-100.0) Mean Corpuscular Hemoglobin 30.5 pg (28.0-32.0) Mean Corpuscular Hemoglobin Concent 35.5 g/dL (32.0-36.0) Red Cell Distribution Width 12.8 % (11.8-14.3) Platelet Count 260 10^3/uL (140-450) Mean Platelet Volume 7.3 fL (6.9-10.8) Neutrophils (%) (Auto) 44.1 % (37.0-80.0) Lymphocytes (%) (Auto) 43.9 % (10.0-50.0) Monocytes (%) (Auto) 7.8 % (0.0-12.0) Eosinophils (%) (Auto) 3.6 % (0.0-7.0) Basophils (%) (Auto) 0.6 % (0.0-2.0) Neutrophils # (Auto) 2.1 10 ^3/uL (1.6-8.6) Lymphocytes # (Auto) 2.1 10 ^3/uL (0.4-5.4) Monocytes # (Auto) 0.4 10 ^3/uL (0-1.3) Eosinophils # (Auto) 0.2 10 ^3/uL (0-0.8) Basophils # (Auto) 0 10 ^3/uL (0-0.2) Nucleated Red Blood Cells 0.1 % Sodium Level 142 mmol/L (136-145) Potassium Level 4.1 mmol/L (3.5-5.1) Chloride Level 106 mmol/L (98-107) Carbon Dioxide Level 27 mmol/L (20-31) Anion Gap 9 (5-15) Blood Urea Nitrogen 5 mg/dL (9-23) Creatinine 0.74 mg/dL (0.700-1.30) Glomerular Filtration Rate Calc 127 mL/min (>90) BUN/Creatinine Ratio 6.8 (10.0-20.0) Serum Glucose 91 mg/dL (74-106) Calcium Level 8.8 mg/dL (8.7-10.4) Total Bilirubin 0.6 mg/dL (0.2-1.0) Aspartate Amino Transferase (AST) 27 U/L (13-40) Alanine Aminotransferase (ALT) 72 U/L (7-40) Alkaline Phosphatase 62 U/L (46-116) Total Protein 5.8 g/dL (5.7-8.2) Albumin 3.9 g/dL (3.2-4.8) Urine Color Dark-orange (Yellow) Urine Clarity Clear (Clear) Urine pH 5.0 (5.0-9.0) Urine Specific [place] 1.013 (1.001-1.035) Urine Protein Negative (Negative) Urine Ketones Negative (Negative) Urine Blood 1+ /uL (Negative) Urine Nitrite 1+ (Negative) Urine Bilirubin Negative (Negative) Urine Urobilinogen Normal mg/dL (Negative) Urine Leukocyte Esterase Negative /uL (Negative) Urine RBC 6 /hpf (0 - 3) Urine Microscopic WBC 1 /HPF (0-3) Urine Squamous Epithelial Cells Few /hpf (<5) Urine Bacteria None seen /hpf (None Seen) Urine Mucus Few (None Seen) Urine Glucose Normal mg/dL (Normal) Other Laboratory Tests 06/04/25 06:26 Brief Hx & Hospital Course: 29-year-old male with a no significant past medical history presented to the hospital with right flank pain and some dysuria found to have right obstructive uropathy with a right ureteric UVJ 2 mm stone with mild hydronephrosis. Patient was found to have UTI as well. Patient was treated with the IV fluids tamsulosin as well as IV antibiotics. Urology evaluated the patient patient is cleared to be discharged. Patient is being discharged under stable condition. Condition at Discharge: Stable Final Diagnosis/Problems List 29-year-old male with a no significant past medical history presented to the hospital with right flank pain and some dysuria found to have 1. Right obstructive uropathy 2. Right ureteric/UVJ 2 mm stone with a mild hydronephrosis 3. Punctate right renal calculus nonobstructing 4. UTI Discharge Disposition: Home SNF Discharge Will this Physician continue t: No Discharge Instruct/Medications Diet: Cardiac 2g Na,low cholest Activity: See Comment Activity comment: No driving, no signing legal documents, no playing on machinery while on narcotics. Follow Up/Referral: Follow up with the PCP in one week follow up with the Urology DR Brian Flores in one week Medications: Medication as prescribed. New Medications: Cephalexin Monohydrate (Cephalexin) 500 Mg Cap 1 CAP PO TID for 5 Days, #15 CAP Hydrocodone-Acetaminophen (Hydrocodone Bitartrate/AC 5-325 mg) 1 Tab Tab 1 TAB PO Q8HP PRN, #10 TAB Naloxone HCl (Narcan) 4 Mg/0.1 Ml Spr 4 MG NA NARCOTICS AND/OR VICE DETECTIVE, #2 SPRAY Tamsulosin Hcl (Flomax) 0.4 Mg Cap 0.4 MG PO QPM, #7 CAP Scheduled Cephalexin Monohydrate (Cephalexin), 1 CAP PO TID Naloxone HCl (Narcan), 4 MG NA NARCOTICS AND/OR VICE DETECTIVE Nortriptyline Hcl (Pamelor Capsule), 10 MG PO QPM, (Reported) Tamsulosin Hcl (Flomax), 0.4 MG PO QPM Scheduled PRN Hydrocodone-Acetaminophen (Hydrocodone Bitartrate/AC 5-325 mg), 1 TAB PO Q8HP PRN Discharge Statement: "Patient was advised to return to the ER or call 911 if any headaches, dizziness, shortness of breath, chest pain, abdominal pain, bleeding, fevers, or worsening of medical condition. Patient was counseled about treatment plan, medications, possible side effects, patientverbalized understanding. All questions were answered to the best of my ability. This discharge took greater then 30 minutes in planning, reviewing documentation, counseling the patient, and discussing with other team members." ASSESSMENT ASSESSMENT Assessment 63-year-old female with a known history of kidney stones, diverticular disease, morbid obesity classII 60 presented to the hospital with the abdominal pain nausea and vomiting diarrhea found to have 1. Acute viral gastroenteritis 2. Nausea and vomiting, abdominal pain currently resolved 3. Migraine headaches 4. Diverticular disease by history 5. Nonobstructing kidney stones 6. Morbid obesity classII 7. Maxillary sinus inclusion cyst/solitary polyp Date of Service: Jun 04, 2025 Billing Provider: NATHANAEL MENDIETA MD Common Visit Codes: 00722-NAG/OBS DISCH DAY >30min NATHANAEL MENDIETA MD Jun 04, 2025 14:51
[2025-06-04 17:00] VITALS: BP 106/73; PULSE 64; RESP 18; TEMP 97.9; O2SAT 97
== END 2025-06-04 17:15 | disposition home or self-care (01) | DRG 690 ==
LOC: ER 12:42 → OVERFLOW 19:11 → WEST WING 21:48
PROVIDERS: ADMIT Internal Medicine; ATTEND Internal Medicine
DX: N13.6 Pyonephrosis (principal); A08.4 Viral intestinal infection, unspecified; E66.01 Morbid (severe) obesity due to excess calories; G43.909 Migraine, unspecified, not intractable, without status migrainosus; K76.0 Fatty (change of) liver, not elsewhere classified; Z87.442 Personal history of urinary calculi; Z68.30 Body mass index [BMI] 30.0-30.9, adult
CPT/HCPCS: 36415; 74176; 80053; 81001; 85025; 96361; 96374; G0378; J2405